=== PATIENT | female | born 1940 ===

== ENCOUNTER 2021-11-12 14:09 | Inpatient (IN) | payer MEDICARE ==
[~2021-11-12] VITALS: Ht 165.1 cm; Wt 123.8 kg
[2021-11-12] MEDS ORDERED: ELIQUIS2.5 MG PO (18:15)
[2021-11-12] MEDS ORDERED: PROTONIX40 MG PO (18:16)
[2021-11-12] MEDS ORDERED: LEVOTHYROXINE150 MCG PO (18:16)
[2021-11-12] MEDS ORDERED: METOPROLOL TART50 MG PO (18:16)
[2021-11-12] MEDS ORDERED: POTASSIUM CHLOR8 MEQ PO (18:17)
[2021-11-12] MEDS ORDERED: ALPRAZOLAM0.5 MG PO (18:18)
[2021-11-12] MEDS ORDERED: PHENERGAN 25 MG25 M1 PO (18:18)
[2021-11-12] MEDS ORDERED: HYDROCODON-ACE1 EAC6 PO (18:20)
[2021-11-12] MEDS ORDERED: LORATADINE10 MG PO (18:21)
[2021-11-12] MEDS ORDERED: FUROSEMIDE40 MG PO (18:21)
[2021-11-12] MEDS ORDERED: MAGNESIUM400 M2 PO (18:22)
[2021-11-12] MEDS ORDERED: VITAMIN D350 MC3 PO (18:23)
[2021-11-12 20:04] LABS: HEMOGLOBIN 14.5 gm/dl (12.3-15.3); RED BLOOD COUNT 4.3 M/UL (4.00-5.10); WHITE BLOOD COUNT 13.9 K/UL (4.5-11.0)
[2021-11-13 01:51] LABS: HEMOGLOBIN 14.7 gm/dl (12.3-15.3); RED BLOOD COUNT 4.35 M/UL (4.00-5.10); WHITE BLOOD COUNT 13.1 K/UL (4.5-11.0)
[2021-11-14 02:20] LABS: HEMOGLOBIN 13.1 gm/dl (12.3-15.3); RED BLOOD COUNT 3.96 M/UL (4.00-5.10); WHITE BLOOD COUNT 12.6 K/UL (4.5-11.0)
[2021-11-14 02:45] LABS: BUN/CREATININE RATIO 53 (0-10)
[2021-11-16 02:47] LABS: BUN/CREATININE RATIO 44 (0-10)
[2021-11-16 03:18] LABS: RED BLOOD COUNT 3.83 M/UL (4.00-5.10)
[2021-11-16 03:44] LABS: WHITE BLOOD COUNT 8.1 K/UL (4.5-11.0)
[2021-11-17 02:24] LABS: HEMOGLOBIN 11.9 gm/dl (12.3-15.3); RED BLOOD COUNT 3.58 M/UL (4.00-5.10); WHITE BLOOD COUNT 6.7 K/UL (4.5-11.0)
[2021-11-17 02:53] LABS: BUN/CREATININE RATIO 35 (0-10)
[2021-11-18 05:23] LABS: HEMOGLOBIN 12.7 gm/dl (12.3-15.3); RED BLOOD COUNT 3.84 M/UL (4.00-5.10)
[2021-11-18 05:25] LABS: WHITE BLOOD COUNT 11.4 K/UL (4.5-11.0)
[2021-11-18 06:22] LABS: BUN/CREATININE RATIO 26 (0-10)
[2021-11-19 05:51] LABS: HEMOGLOBIN 12.3 gm/dl (12.3-15.3); RED BLOOD COUNT 3.73 M/UL (4.00-5.10); WHITE BLOOD COUNT 9.7 K/UL (4.5-11.0)
[2021-11-19 06:15] LABS: BUN/CREATININE RATIO 31 (0-10)
[2021-11-20 05:42] LABS: HEMOGLOBIN 12.6 gm/dl (12.3-15.3); RED BLOOD COUNT 3.8 M/UL (4.00-5.10); WHITE BLOOD COUNT 10.2 K/UL (4.5-11.0)
[2021-11-20 06:06] LABS: BUN/CREATININE RATIO 25 (0-10)
[2021-11-22 07:13] LABS: HEMOGLOBIN 13.4 gm/dl (12.3-15.3); RED BLOOD COUNT 4.05 M/UL (4.00-5.10)
[2021-11-22 07:33] LABS: WHITE BLOOD COUNT 12.8 K/UL (4.5-11.0)
[2021-11-22 07:39] LABS: BUN/CREATININE RATIO 26 (0-10)
[2021-11-23 05:45] LABS: HEMOGLOBIN 12.5 gm/dl (12.3-15.3); RED BLOOD COUNT 3.78 M/UL (4.00-5.10); WHITE BLOOD COUNT 11.7 K/UL (4.5-11.0)
[2021-11-23 06:15] LABS: BUN/CREATININE RATIO 27 (0-10)
[2021-11-24 06:32] LABS: HEMOGLOBIN 12.3 gm/dl (12.3-15.3); RED BLOOD COUNT 3.74 M/UL (4.00-5.10); WHITE BLOOD COUNT 9.8 K/UL (4.5-11.0)
[2021-11-24 06:56] LABS: BUN/CREATININE RATIO 21 (0-10)
--- NOTE | 2021-11-25 04:38 | NUR ---
PT HAS STATED TONIGHT SEVERAL TIMES THAT STAFF ISNT TURNING HER. PT HAS BEEN TURNED SEVERAL TIMES AND EACH TIME SHE REQUESTED. APPROX [id number] PT REFUSED TO BE TURNED UNTIL SHE RECIEVED HER PAIN MEDICATIONS.
[2021-11-25 06:22] LABS: HEMOGLOBIN 12.1 gm/dl (12.3-15.3); RED BLOOD COUNT 3.65 M/UL (4.00-5.10)
[2021-11-25 06:32] LABS: WHITE BLOOD COUNT 12.4 K/UL (4.5-11.0)
[2021-11-25 06:53] LABS: BUN/CREATININE RATIO 19 (0-10)
[2021-11-26 03:25] LABS: HEMOGLOBIN 11.9 gm/dl (12.3-15.3); RED BLOOD COUNT 3.62 M/UL (4.00-5.10); WHITE BLOOD COUNT 11.6 K/UL (4.5-11.0)
[2021-11-26 04:51] LABS: BUN/CREATININE RATIO 20 (0-10)
[2021-11-27 07:51] LABS: BUN/CREATININE RATIO 19 (0-10)
[2021-11-28 03:23] LABS: BUN/CREATININE RATIO 16 (0-10)
[2021-11-29 11:55] LABS: BUN/CREATININE RATIO 20 (0-10)
[2021-11-30 03:00] LABS: BUN/CREATININE RATIO 19 (0-10)
--- NOTE | 2021-11-30 17:11 | NUR ---
Patient continously removes telemetry, made aware.
--- NOTE | 2021-11-30 17:41 | NUR ---
Patient continously pulls Bipap off, telemtry off, and IV out. MD made aware, she stated to try to keep the bipap on and then try to replace the IV when patient is less confused. Will continue to monitor.
[2021-12-01 02:48] LABS: HEMOGLOBIN 11.6 gm/dl (12.3-15.3); RED BLOOD COUNT 3.49 M/UL (4.00-5.10); WHITE BLOOD COUNT 6.8 K/UL (4.5-11.0)
[2021-12-01 03:19] LABS: BUN/CREATININE RATIO 22 (0-10)
--- NOTE | 2021-12-01 18:08 | NUR ---
PT WAS ABLE TO TOLERATE BIPAP FOR [address] ABBOTT NOTIFIED PT HAS A THIRD TOE NAIL TRYING TO COME OFF WELL EXTREMELY OTHER TOE NAILS. PODIATRY CONSULTED .
[2021-12-02 04:12] LABS: BUN/CREATININE RATIO 20 (0-10)
[2021-12-03 03:30] LABS: HEMOGLOBIN 11.7 gm/dl (12.3-15.3); RED BLOOD COUNT 3.53 M/UL (4.00-5.10); WHITE BLOOD COUNT 6.4 K/UL (4.5-11.0)
[2021-12-03 04:24] LABS: BUN/CREATININE RATIO 23 (0-10)
--- NOTE | 2021-12-03 08:46 | NUR ---
PATIENT HAS CHRONIC PAIN THAT SHE SAYS IS A PAIN OF 9/10 INITIALLY, WHEN I CAME BACK TO HER ROOM SHE WAS SLEEPING, SNORING, WHEN I WOKE HER AND ASKED HER IF SHE WAS ALWAYS ABLE TO SLEEP WITH A PAIN OF 9/10, SHE STATED SHE WAS NOT SLEEPING BUT PRAYING. AFTER REASSESSMENT SHE SAYS HER PAIN IS NOW 8/10, I AGAIN HAD TO WAKE HER TO ASK.
[2021-12-04 05:44] LABS: RED BLOOD COUNT 3.62 M/UL (4.00-5.10); WHITE BLOOD COUNT 6.2 K/UL (4.5-11.0)
[2021-12-04 07:12] LABS: BUN/CREATININE RATIO 21 (0-10)
[2021-12-05 02:15] LABS: HEMOGLOBIN 11.3 gm/dl (12.3-15.3); RED BLOOD COUNT 3.41 M/UL (4.00-5.10); WHITE BLOOD COUNT 6.5 K/UL (4.5-11.0)
[2021-12-05 02:40] LABS: BUN/CREATININE RATIO 24 (0-10)
--- NOTE | 2021-12-05 16:44 | NUR ---
REPORT CALLED TO [facility].
== END 2021-12-05 22:54 | disposition home or self-care (01) | DRG 871 ==
LOC: MED SURG 4 17:45 → PROG CARE 17:45 → CCU 17:45 → M/S 17:45 → CCU 11-17 09:10 → MED SURG 4 11-21 17:11 → M/S 11-25 18:45
PROVIDERS: Internal Medicine; ADMIT Internal Medicine
PROC: 3E03329 Introduction of Other Anti-infective into Peripheral Vein, Percutaneous Approach (ICD-10-PCS; 2021-11-12)
PROC: 5A09457 Assistance with Respiratory Ventilation, 24-96 Consecutive Hours, Continuous Positive Airway Pressure (ICD-10-PCS; principal; 2021-11-17)
PROC: 5A09357 Assistance with Respiratory Ventilation, Less than 24 Consecutive Hours, Continuous Positive Airway Pressure (ICD-10-PCS; 2021-11-18)
PROC: 5A09357 Assistance with Respiratory Ventilation, Less than 24 Consecutive Hours, Continuous Positive Airway Pressure (ICD-10-PCS; 2021-11-25)
PROC: 5A09357 Assistance with Respiratory Ventilation, Less than 24 Consecutive Hours, Continuous Positive Airway Pressure (ICD-10-PCS; 2021-11-26)
PROC: 5A09357 Assistance with Respiratory Ventilation, Less than 24 Consecutive Hours, Continuous Positive Airway Pressure (ICD-10-PCS; 2021-11-30)
PROC: 0HBRXZZ Excision of Toe Nail, External Approach (ICD-10-PCS; 2021-12-03)
PROC: 0HBRXZZ Excision of Toe Nail, External Approach (ICD-10-PCS; 2021-12-03)
PROC: 0HBRXZZ Excision of Toe Nail, External Approach (ICD-10-PCS; 2021-12-03)
PROC: 0HBRXZZ Excision of Toe Nail, External Approach (ICD-10-PCS; 2021-12-03)
PROC: 0HBRXZZ Excision of Toe Nail, External Approach (ICD-10-PCS; 2021-12-03)
DX: A41.9 Sepsis, unspecified organism (principal); J96.21 Acute and chronic respiratory failure with hypoxia; J96.22 Acute and chronic respiratory failure with hypercapnia; G93.41 Metabolic encephalopathy; J18.9 Pneumonia, unspecified organism; K81.0 Acute cholecystitis; J44.1 Chronic obstructive pulmonary disease with (acute) exacerbation; E66.2 Morbid (severe) obesity with alveolar hypoventilation; I48.20 Chronic atrial fibrillation, unspecified; N30.00 Acute cystitis without hematuria; N17.9 Acute kidney failure, unspecified; F11.20 Opioid dependence, uncomplicated; E87.3 Alkalosis; Z68.42 Body mass index [BMI] 45.0-49.9, adult; B35.1 Tinea unguium; L60.3 Nail dystrophy; L60.2 Onychogryphosis; I50.9 Heart failure, unspecified; E03.9 Hypothyroidism, unspecified; F41.9 Anxiety disorder, unspecified; M19.90 Unspecified osteoarthritis, unspecified site; G89.29 Other chronic pain; K21.9 Gastro-esophageal reflux disease without esophagitis; I27.20 Pulmonary hypertension, unspecified; I11.0 Hypertensive heart disease with heart failure; M54.9 Dorsalgia, unspecified; Z85.3 Personal history of malignant neoplasm of breast; Z79.01 Long term (current) use of anticoagulants; Z90.710 Acquired absence of both cervix and uterus; Z98.890 Other specified postprocedural states; Z82.49 Family history of ischemic heart disease and other diseases of the circulatory system; Z88.1 Allergy status to other antibiotic agents; Z88.8 Allergy status to other drugs, medicaments and biological substances; Z88.6 Allergy status to analgesic agent
CPT/HCPCS: ECHO; 36415; 36600; 70450; 71045; 76705; 80048; 80053; 80061; 81001; 82150; 82550; 82553; 82607; 82803; 82962; 83036; 83540; 83550; 83605; 83690; 83735; 83880; 84100; 84484; 85025; 85027; 85610; 85652; 86140; 86141; 87040; 87086; 93005; 93306; 94640; 94660; 94760; 97110; 97110-GP-CQ; 97161; 97166; 97530; 97530-GP-CQ; C9113; J1120; J1650; J2185; J2270; J2405; J3475; J3486